=== PATIENT | female | born 1975 | race Caucasian/White ===

== ENCOUNTER 2016-08-10 18:10 | Inpatient (IN) | payer OTHER ==
[~2016-08-10] VITALS: Ht 162.6 cm; Wt 80.3 kg
[2016-08-25] MEDS ORDERED: LORAZEPAM 2 MG/1 ML VIAL IM PRN (21:15)
[2016-08-25] MEDS ORDERED: DICYCLOMINE HCL 20 MG TABLET PO PRN (21:15)
[2016-08-25] MEDS ORDERED: MAGNESIUM HYDROXIDE 30 ML LIQUID UDC PO PRN (21:15)
[2016-08-25] MEDS ORDERED: MAG HYDROX/AL HYDROX/SIMETH 30 ML LIQUID UDC PO PRN (21:15)
[2016-08-25] MEDS ORDERED: ONDANSETRON 4 MG/2 ML VIAL IM PRN (21:15)
[2016-08-25] MEDS ORDERED: THIAMINE HCL 200 MG/2 ML VIAL IM ONE (21:15)
[2016-08-25] MEDS ORDERED: LORAZEPAM 1 MG TABLET PO PRN (21:15)
[2016-08-25] MEDS ORDERED: ACETAMINOPHEN 325 MG TABLET PO PRN (21:15)
[2016-08-25] MEDS ORDERED: LOPERAMIDE HCL 2 MG CAPSULE PO PRN ×2 (21:15)
[2016-08-25] MEDS ORDERED: MIRALAX 17 GM POWD.PACK PO PRN (21:15)
[2016-08-25] MEDS ORDERED: IBUPROFEN 400 MG TABLET PO PRN (21:15)
[2016-08-25] MEDS ORDERED: CLONIDINE HCL 0.1 MG TABLET PO PRN (21:15)
[2016-08-25 21:27] LABS: *URINE HCG, QUAL NEGATIVE (NEGATIVE)
--- NOTE | 2016-08-25 21:30 | NUR ---
Pre-admission assessment Patient is a 41-year old, female, seen at intake, AAOx4, no SOB nor anxiety noted at this time. Patient appears intoxicated but is coherent and able to respond to questions appropriately. Pt is ambulatory with steady gait. Pt reported consuming Alcohol-mostly red wine about 3 bottles daily for the past 2 years. Vital signs taken and as follows: QR=531/93, P=112, O2 sat on RA=98%, RR=20, T=98.2. Pt verbalized instructions and teachings regarding disposal of narcotic and other controlled home meds, unit protocols such as taking of vital signs Q4H and handling and disposal of contraband.
[2016-08-25 21:31] LABS: *AMPHETAMINE, URINE NEGATIVE (NEGATIVE); *BARBITURATE, URINE NEGATIVE (NEGATIVE); *CANNABINOID, URINE NEGATIVE (NEGATIVE); *COCCAINE, URINE NEGATIVE (NEGATIVE); *OPIATE, URINE NEGATIVE (NEGATIVE); *PHENCYCLIDINE SCREEN,URINE NEGATIVE (NEGATIVE)
[2016-08-25 21:55] VITALS: BP 133/91
--- NOTE | 2016-08-25 22:00 | NUR ---
ADMISSION Patient is a 41-year old, female, admitted and escorted by [facility] at 2145 to unit. Patient verbalized that she lives alone in an apartment in [place], [place]. Skin check done, no open skin noted. Patient denies Suicidal Ideation nor Homicidal Ideation. No edema noted. Pt is ambulatory with steady gait. Pt stands 5'4" and weighs 177 pounds per standing scale. Vital signs are as follows: BP-129/92, T-98.2, P-111, RR-20 and SPO2 on RA=97%. Patient is AAOx4 and with mild anxiety noted at this time. Lung sounds clear bilaterally upon auscultation. No cough noted and bowel sounds are present on all quadrants. PERRLA and pupils are 2 mm upon visual check. Pt reports being allergic to Clonidine, on Regular Diet and is Full Code. Pt denies any seizure history. Per pt, withdrawal symptoms are sweating, nausea, vomiting, heartburn, anxiety, depression, insomnia, restless legs, generalized itchiness, flushed skin Substance history as follows: 1) Alcohol-per pt, she started drinking at age 22 and for the last 2 years has been drinking 3 bottles of mostly red wine daily. Last drink was 08/25/2016 at 1930, 2 bottles of red wine. Patient verbalized the she does not take other substances. UDS is negative for substances. Blood Ethyl Alcohol=0.16. Longest sobriety per pt is 30 days back in 2006. Patient informed PMHx of Anxiety, Depression, Hypertension, Hyperlipidemia, Asthma (only during childhood), Anemia, HPV and GERD. Per pt, PCP is Dr. Leija and with no Psychiatrist. Home medication Metoprolol 50 mg PO BID reconciled. Per pt, this is her first time in detox. Patient reports smoking cigarettes, Robinson Lights, about 1 pack daily. Oriented patient to room and instructed with the use of the call light, placed within reach. Fall, universal, seizure and safety precautions implemented. No c/o significant pain at this time All needs met. Information relayed to Dr. Patel. Patient refused Pneumonia vaccine despite explanation of risks and benefits and Flu vaccine is out of season. CIWA=6. Will continue to monitor.
[2016-08-25] MEDS ORDERED: METO50TA3 PO (22:54)
[2016-08-25] MEDS ORDERED: METOPROLOL TARTRATE 50 MG TABLET PO SCH (23:00)
[2016-08-25] MEDS ORDERED: METOPROLOL TARTRATE 50 MG TABLET PO ONE (23:00)
[2016-08-25] MEDS: LORAZEPAM 1 MG TABLET PO PRN (23:06)
--- NOTE | 2016-08-25 23:09 | NUR ---
RN note PRN Ativan and one-time Metoprolol Pt c/o anxiety and noted be flushed and restless. CIWA=7. Administered Ativan 1 mg PO as ordered. Also, pt verbalized that she did not take her 1700 [address]op[address] home meds. Informed Dr. Patel and ordered Metoprolol 50 mg PO one-time order. Administered. Will reassess.
[2016-08-25] MEDS ORDERED: LORAZEPAM 1 MG TABLET ONE (23:13)
[2016-08-25 23:32] LABS: BASOPHILS # (AUTO) 0.1 K/uL (0.0-8.0); BASOPHILS % (AUTO) 0.6 % (0.0-2.0); EOSINOPHILS # (AUTO) 0.3 K/uL (0.0-0.7); EOSINOPHILS % (AUTO) 2.9 % (0.0-7.0); HEMOGLOBIN 14.3 G/DL (12.0-16.0); LYMPHOCYTES # (AUTO) 2.5 K/UL (0.8-4.8); LYMPHOCYTES % (AUTO) 25.2 % (20.5-51.5); MEAN CORPUSCULAR HEMOGLOBIN 33.8 UUG (27.0-31.0); MEAN CORPUSCULAR HGB CONC 35 g/dL (32.0-37.0); MEAN CORPUSCULAR VOLUME 97.3 FL (81.0-99.0); MONOCYTES # (AUTO) 0.5 K/UL (0.1-1.30); MONOCYTES % (AUTO) 5.1 % (0.0-11.0); NEUTROPHILS # (AUTO) 6.6 K/UL (1.8-8.9); NEUTROPHILS % (AUTO) 66.2 % (38.5-71.5); PLATELET COUNT (AUTO) 328 K/UL (150-450); RED BLOOD CELL COUNT(AUTO) 4.21 MIL/UL (4.2-5.4)
[2016-08-25 23:45] LABS: BILIRUBIN,TOTAL 0.1 mg/dL (0.2-1.0); CREATININE 0.8 mg/dL (0.6-1.3); POTASSIUM 3.3 mmol/L (3.5-5.1); TOTAL PROTEIN, SERUM 7.8 g/dL (6.4-8.2)
[2016-08-26] VITALS: BP 105/74
[2016-08-26] MEDS ORDERED: POTASSIUM CHLORIDE 20 MEQ TAB.PRT.SR PO ONE
--- NOTE | 2016-08-26 00:05 | NUR ---
RN note reassess Pt's TA=551/70, Pulse=94. No SOB nor facial grimacing noted. CIWA=4.
[2016-08-26] MEDS ORDERED: POTASSIUM CHLORIDE 20 MEQ TAB.PRT.SR ONE (00:07)
[2016-08-26 00:29] LABS: THYROID STIMULATING HORMONE 1.884 mIU/mL (0.358-3.740)
[2016-08-26] MEDS ORDERED: METO50TA7 PO (01:24)
[2016-08-26 04:00] VITALS: BP 127/88
[2016-08-26] MEDS: LORAZEPAM 1 MG TABLET PO PRN (04:08)
--- NOTE | 2016-08-26 04:09 | NUR ---
RN note PRN Ativan Pt c/o feeling anxious, with fine tremors, flushed skin and sweating noted. CIWA=9. QA=215/88, P=92. Administered Ativan 1 mg PO as ordered. Will reassess.
[2016-08-26] MEDS ORDERED: LORAZEPAM 1 MG TABLET ONE (04:13)
--- NOTE | 2016-08-26 05:15 | NUR ---
RN note Pt asleep on bed, no SOB nor facial grimacing noted. Ativan effective.
--- NOTE | 2016-08-26 07:09 | NUR ---
End of Shift Patient is a 41-year old, female, admitted for ETOH Dependence. Patient reports consuming 3 bottles of mostly red wine daily for the past 2 years. Pt with allergy to Clonidine, is Full Code and on Regular Diet. With PMHx of Anxiety, Depression, Hypertesion, Hyperlipidemia, Asthma, Anemia, HPV (treated), and GERD. Pt is AAOx4, with mild anxiety noted at this time. No SOB noted, not in respi distress. Pt is ambulatory with steady gait and with no skin issues. Fall, universal and safety prec in place. Call light within reach. All needs met. Latest CIWA=9, slept for 5 hours. Endorsed to AM shift nurse for continuity of care.
--- NOTE | 2016-08-26 07:51 | NUR ---
BEGINNING OF SHIFT Patient endorsement report received from composition stone applicator nurse, all pertinent information discussed. patient is a 41 year old Female admitted on 08/25/2016 with admitting Dx: etoh dependence. Patient currently ongoing taper of 5 day Ativan and is scheduled to begin day 1 of taper. per nights shift patient received PRN: Ativan medication effective as per composition stone applicator Patient with last ciwa score of: 9. Patient slept for 5. hours. Patient received awake, alert and oriented x4, educated regarding plan of care for the day and medication regimen. safety measures in place. call light kept with in reach, will continue to monitor.
[2016-08-26 08:27] VITALS: BP 138/96
[2016-08-26] MEDS: MULTIVITAMINS,THERAPEUTIC TABLET PO SCH (08:27)
[2016-08-26] MEDS: FOLIC ACID 1 MG TABLET PO SCH (08:28)
[2016-08-26] MEDS: LORAZEPAM 1 MG TABLET PO SCH ×4 (08:28→20:51)
[2016-08-26] MEDS: THIAMINE HCL 100 MG TABLET PO SCH (08:28)
[2016-08-26] MEDS ORDERED: TUBERCULIN,PURIF.PROT.DERIV. 5 TU/0.1 ML TEST ID ONE (09:00)
[2016-08-26] MEDS ORDERED: METOPROLOL SUCCINATE XL 50 MG TAB.SR.24H PO SCH ×2 (09:00→09:45)
[2016-08-26 13:16] VITALS: BP 117/80
[2016-08-26 17:00] VITALS: BP 136/88
--- NOTE | 2016-08-26 18:58 | NUR ---
END OF SHIFT Patient alert and oriented x4, vital signs stable during shift. Patient with admitting Dx: ETOH dependence. Patient continues on 5 day Ativan taper, and is currently on day 1 of taper, well tolerated, no ASE noted. 0900 assessment patient presented with: mild nausea, tremors that can be felt but not seen, sweats, moderate anxiety and very mild head fullness with ciwa score of: 10. 1300 assessment patient presented with: tremors that can be felt but not seen, anxiety, barely sweating with ciwa score of: 4. 1700 assessment patient presented with: tremors that can be felt but not seen, anxiety, barely sweating with ciwa score of: 4. Patient was administered no PRNs medications during shift. Patient encouraged adequate PO fluid intake as tolerated. Encouraged to attend group therapies/sessions to learn new coping skills to prevent relapse denies any SI/HI. Safety measures in place. call light kept with in reach. all needs met and rendered. patient endorsed to awake overnight counselor nurse, all pertinent information discussed.
[2016-08-26 20:00] VITALS: BP 129/91
--- NOTE | 2016-08-26 20:00 | NUR ---
Start of Shift Patient is a 41-year old, female, admitted for ETOH Dependence. Patient reports consuming 3 bottles of mostly red wine daily for the past 2 years. Pt with allergy to Clonidine, is Full Code and on Regular Diet. With PMHx of Anxiety, Depression, Hypertesion, Hyperlipidemia, Asthma, Anemia, HPV (treated), and GERD. Pt is AAOx4, with mild anxiety noted at this time. No SOB noted, not in respi distress. Pt is ambulatory with steady gait and with no skin issues. Fall, universal and safety prec in place. Call light within reach. All needs met. Latest CIWA=5. Will continue to monitor.
[2016-08-26] MEDS: METOPROLOL TARTRATE 50 MG TABLET PO SCH (20:51)
[2016-08-26] MEDS ORDERED: LORAZEPAM 1 MG TABLET PO PRN ×2 (21:00)
[2016-08-27] VITALS: BP 125/90
[2016-08-27 04:00] VITALS: BP 119/83
--- NOTE | 2016-08-27 07:02 | NUR ---
End of Shift Patient is a 41-year old, female, admitted for ETOH Dependence. Patient reports consuming 3 bottles of mostly red wine daily for the past 2 years. Pt with allergy to Clonidine, is Full Code and on Regular Diet. With PMHx of Anxiety, Depression, Hypertesion, Hyperlipidemia, Asthma, Anemia, HPV (treated), and GERD. Pt is AAOx4, with mild anxiety noted at this time. No SOB noted, not in respi distress. Pt is ambulatory with steady gait and with no skin issues. Fall, universal and safety prec in place. Call light within reach. All needs met. Latest CIWA=5, slept for 8 hours. Endorsed to AM shift nurse for continuity of care.
[2016-08-27 08:00] VITALS: BP 130/90
[2016-08-27 08:06] LABS: HEPATITIS B SURFACE AG Negative (Negative)
[2016-08-27 08:24] LABS: BASOPHILS % (AUTO) 0.5 % (0.0-2.0); EOSINOPHILS # (AUTO) 0.3 K/uL (0.0-0.7); EOSINOPHILS % (AUTO) 3.2 % (0.0-7.0); HEMATOCRIT 41.5 % (37-47); HEMOGLOBIN 13.8 G/DL (12.0-16.0); LYMPHOCYTES # (AUTO) 1.3 K/UL (0.8-4.8); LYMPHOCYTES % (AUTO) 15.4 % (20.5-51.5); MEAN CORPUSCULAR HGB CONC 33 g/dL (32.0-37.0); MEAN CORPUSCULAR VOLUME 99.3 FL (81.0-99.0); MONOCYTES # (AUTO) 0.5 K/UL (0.1-1.30); MONOCYTES % (AUTO) 6.2 % (0.0-11.0); NEUTROPHILS # (AUTO) 6.1 K/UL (1.8-8.9); NEUTROPHILS % (AUTO) 74.7 % (38.5-71.5); PLATELET COUNT (AUTO) 311 K/UL (150-450); RED BLOOD CELL COUNT(AUTO) 4.18 MIL/UL (4.2-5.4); WHITE BLOOD COUNT (AUTO) 8.2 K/UL (4.0-11.2)
[2016-08-27 08:50] LABS: BILIRUBIN,DIRECT 0.1 mg/dL (0.0-0.2); BILIRUBIN,TOTAL 0.4 mg/dL (0.2-1.0); CREATININE 0.8 mg/dL (0.6-1.3); PHOSPHOROUS 2.8 mg/dL (2.5-4.9); POTASSIUM 3.7 mmol/L (3.5-5.1); TOTAL PROTEIN, SERUM 7.2 g/dL (6.4-8.2)
[2016-08-27] MEDS: MULTIVITAMINS,THERAPEUTIC TABLET PO SCH (09:06)
[2016-08-27] MEDS: FOLIC ACID 1 MG TABLET PO SCH (09:06)
[2016-08-27] MEDS: LORAZEPAM 1 MG TABLET PO SCH ×3 (09:06→20:14)
[2016-08-27] MEDS: THIAMINE HCL 100 MG TABLET PO SCH (09:07)
[2016-08-27] MEDS: METOPROLOL TARTRATE 50 MG TABLET PO SCH ×2 (09:07→20:14)
--- NOTE | 2016-08-27 10:00 | NUR ---
START OF SHIFT Received report from cnc machinist 2nd shift nurse. Received patient laying in bed. Patient is 41 year old female admitted for medically supervised withdrawal from alcohol. Patient is full code with allergy on clonidine. On fall precautions. On assessment this AM: CIWA: 2. Patient reports mild anxiety and tremors. Patient ate 75% of her breakfast, encouraged to hydrate with fluids. Patient on 5-day Ativan taper. Med compliant. Ativan given as ordered. Patient reports having small BM this AM, encouraged to drink plenty of water before giving her any PRN as she also reported she had diarrhea yesterday. Patient was encouraged to attend group meetings today. Will continue to monitor patient.
[2016-08-27 12:00] VITALS: BP 119/77
--- NOTE | 2016-08-27 14:25 | NUR ---
PRN IBUPROFEN Patient complained of headache pain level 5/10. PRN ibuprofen given. Will continue to monitor patient.
--- NOTE | 2016-08-27 15:25 | NUR ---
REASSESSMENT (PRN IBUPROFEN) Patient noted asleep. No complaints reported by patient at this time.
[2016-08-27 16:00] VITALS: BP 128/79
--- NOTE | 2016-08-27 19:00 | NUR ---
END OF SHIFT Patient is 41 year old female admitted for medically supervised withdrawal from alcohol. Patient is full code with allergy on clonidine. On fall precautions. Complained of headache, 5/10, PRN ibuprofen given, effective. Most recent CIWA: 2. Patient on 5day Ativan taper, compliant with treatment plan. Patient reports mild anxiety and restless legs. Patient's behavior is appropriate. Patient is tolerating her current diet without n/v. All needs met. overnight housepersonnight filler will continue to monitor patient.
[2016-08-27 20:00] VITALS: BP 146/112
--- NOTE | 2016-08-27 20:00 | NUR ---
BP/ HR - MD NOTIFIED DR. TRUONG MADE AWARE OF PATIENT'S BP-146/112, HR 122. ROUTINE ATIVAN, NEURONTIN AND LOPRESSOR 50 MG WAS GIVE. WILL RECHECK BP/HR.
--- NOTE | 2016-08-27 20:00 | NUR ---
START OF SHIFT NOTE PATIENT IN ROOM, NOTED EMOTIONAL, REPORTS ANXIETY, NO N/V, SWEATING , FLUSHED , NO N/V. DENIES ANY PAIN. RELAXATION TECHNIQUE PROVIDED. RECEIVED REPORT FROM DAY SHIFT NURSE. PATIENT IS A 35 YEAR OLD FEMALE, ADMITTED FOR ETOH DEPENDENCE. PATIENT IS ON 2ND DAY OF HER 5 DAY ATIVAN TAPER. PATIENT IS FULL CODE, REGULAR DIET AND ALLERGIC TO CLONIDINE. PATIENT DRINKS 3 BOTTLES OF MOSTLY RED WINE DAILY FOR 2 YEARS. PATIENT REPORTS PMH OF ANXIETY, DEPRESSION, HYPERTENSION, HYPERLIPIDEMIA , ASTHMA, ANEMIA , HPV (TREATED ) AND GERD. PATIENT IS ON FALL/SEIZURE PRECAUTION. SKIN INTACT. PATIENT WAS GIVEN IBUPROFEN. LAST CIWA 2. SAFETY MEASURES IN PLACE. CALL LIGHT IN REACH. WILL CONTINUE TO MONITOR.
[2016-08-27] MEDS: GABAPENTIN 300 MG CAPSULE PO SCH (20:14)
[2016-08-27] MEDS ORDERED: LORAZEPAM 1 MG TABLET PO ONE (21:30)
[2016-08-27] MEDS ORDERED: HYDROXYZINE PAMOATE 25 MG CAPSULE PO PRN (21:30)
--- NOTE | 2016-08-27 21:33 | NUR ---
ONE TIME ATIVAN ADMINISTRATION OBTAIN NEW ORDER FROM Surya TRUONG TO GIVE PATIENT ONE TIME ATIVAN. CIWA 5. BLOOD PRESSURE 129/97 , PULSE 103. PATIENT ANXIOUS. WILL MONITOR FOR EFFECTIVENESS
--- NOTE | 2016-08-27 22:33 | NUR ---
PRN ATIVAN RE-ASSESSMENT PATIENT IN BED ASLEEP.RESPIRATION EVEN AND UNLABORED. NO S/S OF DISTRESS. SAFETY MEASURES IN PLACE. CALL LIGHT IN REACH. WILL CONTINUE TO MONITOR.
[2016-08-28] VITALS: BP 113/76
[2016-08-28 04:00] VITALS: BP 116/75
--- NOTE | 2016-08-28 07:37 | NUR ---
END OF SHIFT NOTE MONITORED PATIENT THROUGHOUT SHIFT. PATIENT NOTED EMOTIONAL, REPORTED ANXIETY, NO N/V, SWEATING , FLUSHED , NO N/V. DENIES ANY PAIN DURING SHIFT. RELAXATION TECHNIQUE PROVIDED. PATIENT IS A 35 YEAR OLD FEMALE, ADMITTED FOR ETOH DEPENDENCE. PATIENT IS ON 2ND DAY OF HER 5 DAY ATIVAN TAPER, TOLERATED WELL, NO ADVERSE REACTION. PATIENT IS FULL CODE, REGULAR DIET AND ALLERGIC TO CLONIDINE. PATIENT DRINKS 3 BOTTLES OF MOSTLY RED WINE DAILY FOR 2 YEARS. PATIENT REPORTS PMH OF ANXIETY, DEPRESSION, HYPERTENSION, HYPERLIPIDEMIA , ASTHMA, ANEMIA , HPV (TREATED ) AND GERD. AT 1999 , PATIENT 'S BP WAS 146/[address] TRUONG WAS AWARE. RECHECK BP AND HR , IT WENT DOWN TO 129/97 HR-103. DR. TRUONG MADE NEW ORDER TO GIVE ONE TIME ATIVAN . PATIENT COMPLIANT WITH MEDICATION AND TREATMENT PLAN. PATIENT REMAIN FREE OF INJURY. PATIENT REMAIN FREE OF SEIZURE DURING SHIFT. PATIENT IS ON FALL/SEIZURE PRECAUTION. SAFETY MEASURES IN PLACE. CALL LIGHT IN REACH. WILL CONTINUE TO MONITOR. SLEPT 8 HOURS. FLUID INTAKE 1,000 ML. VOIDED X 2 . NO BM. LAST CIWA 1 .
--- NOTE | 2016-08-28 07:55 | NUR ---
START OF SHIFT Rcvd endorsement from shift superintendent caustic cresylate nurse, client is in bed, A/O to name, place, and time, she presents with anxious mood, flat affect, stating "I don't feel good, my legs are bothering me, it feels like I have to keep moving them all the time." She denies any N/V/D. She denies any SI/HI. Encouraged increased fluids to assist in facilitating detox. Encouraged group attendance to help maintain sobriety. Client admitted for medically supervised withdrawal from alcohol, she is on day 2nd of 5 Ativan taper. Patient is full code, allergies to Clonidine. Seizure precautions. She reports PMH Anxiety, Depression, Essential hypertension, Dyslipidemia, Reflux esophagitis, Chronic tobacco use. Last CIWA 1. Side rails x 2 up/padded. Call light within reach. Will continue plan of care
[2016-08-28] MEDS: GABAPENTIN 300 MG CAPSULE PO SCH ×2 (08:26→15:30)
[2016-08-28] MEDS: MULTIVITAMINS,THERAPEUTIC TABLET PO SCH (08:26)
[2016-08-28] MEDS: THIAMINE HCL 100 MG TABLET PO SCH (08:26)
[2016-08-28] MEDS: FOLIC ACID 1 MG TABLET PO SCH (08:26)
[2016-08-28] MEDS: LORAZEPAM 1 MG TABLET PO SCH ×4 (08:27→20:34)
[2016-08-28] MEDS: METOPROLOL TARTRATE 50 MG TABLET PO SCH ×2 (08:27→20:34)
[2016-08-28 08:30] VITALS: BP 124/89
--- NOTE | 2016-08-28 09:00 | NUR ---
Zero induration on L F/A TB site.
[2016-08-28 12:00] VITALS: BP 115/73
--- NOTE | 2016-08-28 12:00 | NUR ---
MD NOTIFICATION Client with episodes of tachycardia, flashed face, she denies any chest pain.
--- NOTE | 2016-08-28 14:10 | NUR ---
ECG RESULTS Sinus Tachycardia, Dr. Patel made aware. NNO at this time, client is in room, watching TV, will continue ot monitor.
[2016-08-28 16:55] VITALS: BP 139/93
--- NOTE | 2016-08-28 18:33 | NUR ---
END OF SHIFT Client is in room, she was not compliant with group therapy. Ativan taper continues and is effective managing his s/sx of withdrawal (sweats, restless legs, anxiety and irritability) She is a 41 y/o female admitted to [facility] on 08/25/16 for medically-supervised withdrawal from alcohol. Allergies to Clonidine, Regular diet, full code. Last CIWA 9. Sinus Tachycardia, Dr. Patel made aware. NNO, 1600 VITALS P 123, an hour after Ativan 1mg taper, P 98. Adequate intake 4026mL and output void x 4, stool x 2. Seizure precautions. Side rails x 2 up/padded. Call light within reach. Endorsed to incoming nurse.
--- NOTE | 2016-08-28 18:33 | NUR ---
START OF SHIFT NOTE Patient endorsed by day shift nurse. SBAR Report received. Patient is a 41 year old female admitted to [facility] on 08/25/16 for Alcohol dependence, placed on 5 Day Ativan Taper since 08/26/16. Patient tolerated well. Patient remains compliant with treatment plan, medications, and diet regime. Patient reports Allergies to Clonidine. Patient on Regular Diet, placed on Full Code, Seizures and Fall Precautions. Patient denies Seizures History. Patient reports PMH: Alcohol Dependence, Anemia, Anxiety, Asthma, Depression, HTN, Hyperlipidemia, HPV, GERD. Patient denies Past Surgery History. Patient reports a history of alcohol use disorder " During last 2years, since 2014". Patient reports, "this is his first time in detox/treatment". The patient denies a History of Seizures. At the time of endorsement, patient is alert and oriented x4, Speech is clear and soft. CIWA 7: The patient reported the following symptoms of withdrawal: anxiety, agitation, nervousness, body aches, diaphoresis, abdominal cramps, headache, restless legs, tremors, and fatigue. Patient denies SI/HI. Breathing is even and unlabored. Patient denies SOB and chest pain. Patient has tachycardia. ECG done on 08/28/16. Results placed in the chart. Doctor Gilbert Patel MD aware. Abdomen is soft, non-distended. Bowel Sounds is active in all x 4 quadrants. Last BM was "08/28/16". Skin is intact, warm and moist by tough. Patient encouraged to fluids intake, as tolerated. Patient attended group activities to improve copping skills. All needs met. Safety measures in place by hospital policy: Call light within reach, bed in the lowest position and lock, padded rails up x2. Will continue to monitor closely.
[2016-08-28 20:00] VITALS: BP 133/89
[2016-08-28] MEDS: ONDANSETRON ODT 4 MG TAB.RAPDIS SL PRN (20:40)
--- NOTE | 2016-08-28 20:40 | NUR ---
PRN ZOFRAN ODT (ONDANSETRON ODT) RAPIDUS SL ADMINISTRATION Patient c/o nausea. Patient was assessed. Patient denies vomiting and diarrhea. Ordered PRN Zofran Odt.(Ondansetron Odt) SL discussed with patient. Patient was educated for actions, side effects, and adverse reactions of Zofran Odt. (Ondansetron Odt) SL. Patient return his knowledge back by verbalized understanding. PRN Zofran Odt. (Ondansetron Odt) 4 mg 1 tablet Rapidus, SL administrated as ordered. Patient tolerated well. Will re-assess in one hour. All needs met. Safety measures in place by hospital policy: Call light within reach, bed in the lowest position and lock, padded rails up x2. Will continue to monitor closely.
[2016-08-28] MEDS ORDERED: GABAPENTIN 300 MG CAPSULE PO SCH (21:00)
--- NOTE | 2016-08-28 21:40 | NUR ---
RE - ASSESSMENT Patient denies N/V, and said that "Zofran was effective". All needs met. Safety measures in place by hospital policy: Call light within reach, bed in the lowest position and lock, padded rails up x2. Will continue to monitor closely.
[2016-08-29] VITALS: BP 126/79
[2016-08-29 04:00] VITALS: BP 109/66
--- NOTE | 2016-08-29 07:11 | NUR ---
END OF SHIFT NOTE Patient endorsed to day shift nurse in stable condition. Report given. Patient is a 41 year old female admitted to [facility] on 08/25/16 for Alcohol dependence, placed on 5 Day Ativan Taper since 08/26/16. Patient tolerated well. Patient remains compliant with treatment plan, medications, and diet regime. Patient reports Allergies to Clonidine. Patient on Regular Diet, placed on Full Code,Seizures and Fall Precautions. Patient denies Seizures History. Patient reports PMH: Alcohol Dependence, Anemia, Anxiety, Asthma, Depression, HTN, Hyperlipidemia, HPV, GERD. Patient denies Past Surgery History. Patient reports a history of alcohol use disorder "since 2014". Patient reports, "this is his first time in detox/treatment". The patient denies a History of Seizures. CIWA at 04:00 decreased from 7 to 4: The patient presented with the following symptoms of withdrawal: anxiety, agitation, nervousness, body aches, diaphoresis, abdominal cramps, nausea, headache, restless legs, tremors, and fatigue. Patient denies vomiting an diarrhea. PRN Zofran SL for nausea was effective. Patient denies SI/HI. Breathing is even and unlabored. Patient denies SOB and chest pain. Patient has sinus tachycardia r/t ECG results from 08/28/16. Results placed in the chart. Doctor Gilbert Patel MD aware. Last BM was "08/28/16". Skin is intact, warm and moist by tough. Patient encouraged to fluids intake, as tolerated. Patient attended group activities to improve copping skills.Patient slept 8 hours, intake 1200 ml, voided x3. Patient attended group activities. All needs met. Safety measures in place by hospital policy: Call light within reach, bed in the lowest position and lock, padded rails up x2.
--- NOTE | 2016-08-29 07:55 | NUR ---
START OF SHIFT Rcvd endorsement from weight shifter nurse, client is in bed, A/O to name, place, and time, she presents with depressed mood, flushed face, she reports restless legs, anxiety, she denies any N/V/D, "My head feels very tight at my forehead." She denies any SI/HI. Encouraged increased fluids to assist in facilitating detox. Encouraged group attendance to help maintain sobriety. Client admitted for medically supervised withdrawal from alcohol, she is on day 3rd of 5 Ativan taper. Patient is full code, allergies to Clonidine. Seizure precautions. Last CIWA 5. Side rails x 2 up/padded. Call light within reach. Will continue plan of care
[2016-08-29] MEDS: THIAMINE HCL 100 MG TABLET PO SCH (08:38)
[2016-08-29] MEDS: FOLIC ACID 1 MG TABLET PO SCH (08:38)
[2016-08-29] MEDS: LORAZEPAM 1 MG TABLET PO SCH ×3 (08:38→21:08)
[2016-08-29] MEDS: GABAPENTIN 300 MG CAPSULE PO SCH ×3 (08:38→21:08)
[2016-08-29] MEDS: MULTIVITAMINS,THERAPEUTIC TABLET PO SCH (08:38)
--- NOTE | 2016-08-29 08:38 | NUR ---
PRN Tylenol 650mg Client reports frontal VILLA, 07/13, she denies any nausea, vomiting. Encouraged to increase fluid intake as tolerated and administered Tylenol 650mg PO. Call light within reach.
[2016-08-29] MEDS: METOPROLOL TARTRATE 50 MG TABLET PO SCH (08:39)
[2016-08-29 08:44] VITALS: BP 142/95
--- NOTE | 2016-08-29 09:39 | NUR ---
reassessment PRN Tylenol 650mg Client reports relief from VILLA 0/10, Tylenol 650mg effective. Call light within reach.
[2016-08-29 12:10] VITALS: BP 127/88
[2016-08-29] MEDS: ONDANSETRON ODT 4 MG TAB.RAPDIS SL PRN (12:12)
--- NOTE | 2016-08-29 12:12 | NUR ---
PRN ZOFRAN, BENTYL Client reports intermittent nausea, no episodes of emesis, Zofran 4mg SL given and Bentyl 20mg PO for abdominal spasms. Risk/benefits discuss, she verbalized understanding. Call light within reach.
--- NOTE | 2016-08-29 13:12 | NUR ---
Reassessment PRN ZOFRAN, BENTYL Client reports relief from nausea, no more abd spasms Zofran 4mg SL and Bentyl 20mg effective. Call light within reach.
[2016-08-29] MEDS ORDERED: METOPROLOL TARTRATE 50 MG TABLET PO ONE (14:00)
[2016-08-29 16:55] VITALS: BP 119/82
--- NOTE | 2016-08-29 19:36 | NUR ---
END OF SHIFT Client is in room, she was not compliant with group therapy. Ativan taper continues and is effective managing his s/sx of withdrawal (sweats, restless legs, anxiety and irritability) She is a 41 y/o female admitted to [facility] on 08/25/16 for medically-supervised withdrawal from alcohol. Allergies to Clonidine, Regular diet, full code. Last CIWA 7. PRN Tylenol for VILLA, Bentyl for abd spasms, Zofran for nausea all noted effective. Sinus Tachycardia, Dr. Patel made aware, he increased Metoprolol to 100mg BID. Adequate intake 1750mL and output void x 1, stool x 1. Seizure precautions. Side rails x 2 up/padded. Call light within reach. Endorsed to incoming nurse.
--- NOTE | 2016-08-29 19:36 | NUR ---
START OF SHIFT NOTE Patient endorsed by day shift nurse in stable condition. Report received. Patient is a 41 year old female admitted to [facility] on 08/25/16 for Alcohol dependence, placed on 5 Day Ativan Taper since 08/26/16. Patient tolerated well. Patient remains compliant with treatment plan, medications, and diet regime. Allergies to Clonidine, Regular Diet, Full Code, Seizures and Fall Precautions. The patient denies a History of Seizures. At the time of endorsement, patient is in the room is alert and oriented x4. Speech is clear and soft. CIWA 7: The patient reported the following symptoms of withdrawal: anxiety, agitation, nervousness, diaphoresis, abdominal cramps, headache, restless legs, tremors, and fatigue. Patient denies SI/HI. VS WNL. Breathing is even and unlabored. Patient denies SOB and chest pain. Abdomen is soft, non-distended. Bowel Sounds is active in all x 4 quadrants. Last BM was "08/29/16 at 10:00". Skin is intact, warm and moist by tough. Patient encouraged to fluids intake, as tolerated. Patient attended group activities. All needs met. Safety measures in place by hospital policy: Call light within reach, bed in the lowest position and lock, padded rails up x2. Will continue to monitor closely.
[2016-08-29 20:00] VITALS: BP 145/88
[2016-08-29] MEDS ORDERED: METOPROLOL TARTRATE 50 MG TABLET PO SCH (21:00)
[2016-08-29] MEDS: METOPROLOL TARTRATE 100 MG TABLET PO SCH (21:09)
[2016-08-30] VITALS: BP 107/65
[2016-08-30 04:00] VITALS: BP 109/71
--- NOTE | 2016-08-30 07:16 | NUR ---
END OF SHIFT NOTE: Patient endorsed to day shift nurse in stable condition. Report given. Patient is a 41 year old female admitted to [facility] on 08/25/16 for Alcohol dependence, placed on 5 Day Ativan Taper since 08/26/16. Patient tolerated well. Patient remains compliant with treatment plan, medications, and diet regime. Allergies to Clonidine, Regular Diet, Full Code, Seizures and Fall Precautions. Patient denies a History of Seizures. During the retail shift supervisor CIWA decreased from 7 to 3. Patient presented with the following symptoms of withdrawal: Anxiety, agitation, nervousness, diaphoresis, abdominal cramps, headache, restless legs, tremors that can be felt, and fatigue. Patient denies SI/HI. VS WNL. Breathing is even and unlabored. Patient denies SOB and chest pain. Skin is intact, warm and moist by tough. Patient encouraged to fluids intake, as tolerated. Patient slept 8 hours 25 minutes, intake 1,150 ml, voided x1. All needs met. Safety measures in place by hospital policy: Call light within reach, bed in the lowest position and lock, padded rails up x2.
[2016-08-30 08:00] VITALS: BP 133/89
--- NOTE | 2016-08-30 08:04 | NUR ---
START OF SHIFT NOTE Received pt this Am AOx4. Patient reports she feels better and slept good last night.Patient on 5 day Ativan taper. No PRNs given during the night. Patient slept 8 hours. Last CIWA 3 per night nurse. Encouraged pt to increase fluid intake to facilitate detox. Encouraged pt to attend groups and activities.. Will provide safe and supportive environment.
[2016-08-30] MEDS: METOPROLOL TARTRATE 100 MG TABLET PO SCH ×2 (08:52→20:45)
[2016-08-30] MEDS: LORAZEPAM 1 MG TABLET PO SCH ×2 (08:52→20:43)
[2016-08-30] MEDS: GABAPENTIN 300 MG CAPSULE PO SCH ×3 (08:52→20:43)
[2016-08-30] MEDS: FOLIC ACID 1 MG TABLET PO SCH (08:52)
[2016-08-30] MEDS: MULTIVITAMINS,THERAPEUTIC TABLET PO SCH (08:52)
[2016-08-30] MEDS: THIAMINE HCL 100 MG TABLET PO SCH (08:52)
[2016-08-30 12:00] VITALS: BP 110/68
[2016-08-30 16:00] VITALS: BP 135/91
--- NOTE | 2016-08-30 18:36 | NUR ---
END OF SHIFT NOTE Patient continues on 5 day Ativan taper and tolerating well. No PRNS given during shift as detox meds are effective. Last CIWA 5. Patient reports feeling mildly agitated during shift. Patient isolated self in room most of shift and did not attend groups or activities or socialize self with peers. All needs have been met. All safety measures in place. Will pass shift report to oncoming nurse.
[2016-08-30 20:00] VITALS: BP 131/89
--- NOTE | 2016-08-30 20:00 | NUR ---
START OF SHIFT NOTE Report received from Mariama day shift nurse. She endorsed a patient a 41 year old female admitted to [facility] on 08/25/16 for Alcohol dependence, continues 5 Day Ativan Taper since 08/26/16. Patient tolerated well. Patient remains compliant with treatment plan, medications, and diet regime. Allergies to Clonidine, Regular Diet, Full Code, Seizures and Fall Precautions. The patient denies a History of Seizures. At the time of endorsement, patient is in the room is alert and oriented x4. Speech is clear and soft. CIWA 5: The patient reported the following symptoms of withdrawal: anxiety, agitation, nervousness, diaphoresis, abdominal cramps, headache, restless legs, tremors, and fatigue. Patient denies SI/HI. VS WNL. Breathing is even and unlabored. Patient denies SOB and chest pain. Abdomen is soft, non-distended. Bowel Sounds is active in all x 4 quadrants. Skin is intact, warm and moist to touch. Patient encouraged to fluids intake, as tolerated. Patient attended group activities. All needs met. Safety measures in place by hospital policy: Call light within reach, bed in the lowest position and lock, padded rails up x2. Will continue to monitor closely.
--- NOTE | 2016-08-30 20:52 | NUR ---
PRN MILK OF MAGNESIA ADMINISTRATION Patient c/o "constipation" and ask aid. Patient assessed. VS WNL. Patient denies pain: "0/10". Abdomen soft and non-distended. Last BM was "08/29/2016 at 10:00". PRN Milk of Magnesia PO discussed with patient. Patient educated for actions, side effects, and adverse reactions of Milk of Magnesia. Patient return knowledge back by verbalized understanding. PRN Milk of Magnesia PO administrated as ordered with full glasses of water. Patient tolerated well. Encouraged fluid intake, as tolerated. Will re-assess in one hour. All needs met. Safety measures in place by hospital policy: Call light within reach, bed in the lowest position and lock, padded rails up x2. Will continue to monitor closely.
[2016-08-30] MEDS: diphenhydrAMINE 50 MG CAPSULE PO PRN (20:53)
--- NOTE | 2016-08-30 20:53 | NUR ---
PRN BENADRYL 50 MG PO ADMINISTRATION Patient c/o insomnia. Patient assessed. VS WNL. Patient denies pain: "0/10". Ordered PRN Benadryl PO discussed with patient. Patient was educated for actions, side effects, and adverse reactions of Benadryl. Patient return knowledge back by verbalized understanding. PRN Benadryl 50 mg 1 tablet PO administrated as ordered with full glasses of water. Patient tolerated well. Will re-assess in one hour. All needs met. Safety measures in place by hospital policy: Call light within reach, bed in the lowest position and lock, padded rails up x2. Will continue to monitor closely.
--- NOTE | 2016-08-30 21:25 | NUR ---
RE - ASSESSMENT Patient denies abdominal cramps:"Milk of Magnesia helped me. I am feeling much better now". All needs met. Safety measures in place by hospital policy: Call light within reach, bed in the lowest position and lock, padded rails up x2. Will continue to monitor closely.
--- NOTE | 2016-08-30 21:53 | NUR ---
RE - ASSESSMENT Patient is lying in the bed with closed eyes. Breathing is even and unlabored. PRN Benadryl PO was effective. All needs met. Safety measures in place by hospital policy: Call light within reach, bed in the lowest position and lock, padded rails up x2. Will continue to monitor closely.
[2016-08-31] VITALS: BP 97/59
[2016-08-31 04:00] VITALS: BP 105/68
--- NOTE | 2016-08-31 06:59 | NUR ---
END OF SHIFT NOTE: Patient endorsed to day shift nurse in stable condition. Report given. Patient is a 41 year old female admitted to [facility] on 08/25/16 for Alcohol dependence, continues 5 Day Ativan Taper since 08/26/16. Patient tolerated well. Patient reports allergies to Clonidine and Regular Diet. Patient placed on Full Code, Seizures and Fall Precautions. Patient denies a History of Seizures. Upon last assessment at 04:00, CIWA decreased from 8 to 3. Patient presented with the following symptoms of withdrawal: Anxiety, agitation, nervousness, diaphoresis, abdominal cramps, headache, restless legs, tremors that can be felt, and fatigue. Patient denies SI/HI. VS at 04:00: T:98'3, BP: 105/68; HR: 89; RA O2 Sat: 95%; RR: 16, Pain level: "0/10". Breathing is even and unlabored. Patient denies SOB and chest pain. Skin is intact, warm and moist by tough. Patient encouraged to fluids intake, as tolerated. PRN Milk of Magnesia PO and PRN Benadryl PO were effective. Patient slept 7 hours, intake 1,500 ml, voided x2, stool x1. All needs met. Safety measures in place by hospital policy: Call light within reach, bed in the lowest position and lock, padded rails up x2.
[2016-08-31 08:00] VITALS: BP 134/75
--- NOTE | 2016-08-31 08:23 | NUR ---
START OF SHIFT NOTE Received pt this Am AOx4. Patient presents with brighter mood and affect. She reports she feels "good" Patient on 5 day Ativan taper. PRN Milk of Magnesia and Benadryl given per night nurse with effectiveness. Patient slept 7 hours. Last CIWA 3 per night nurse. Encouraged pt to increase fluid intake to facilitate detox. Encouraged pt to attend groups and activities and socialize herself with peers today. Will provide safe and supportive environment.
[2016-08-31] MEDS: THIAMINE HCL 100 MG TABLET PO SCH (08:29)
[2016-08-31] MEDS: MULTIVITAMINS,THERAPEUTIC TABLET PO SCH (08:30)
[2016-08-31] MEDS: METOPROLOL TARTRATE 100 MG TABLET PO SCH ×2 (08:30→21:01)
[2016-08-31] MEDS: GABAPENTIN 300 MG CAPSULE PO SCH ×3 (08:30→21:01)
[2016-08-31] MEDS: FOLIC ACID 1 MG TABLET PO SCH (08:30)
[2016-08-31 12:00] VITALS: BP 130/86
[2016-08-31 16:00] VITALS: BP 131/96
--- NOTE | 2016-08-31 16:27 | NUR ---
PRN MEDS PRN Maalox given for c/o heartburn. Will reassess
--- NOTE | 2016-08-31 17:05 | NUR ---
PRN REASSESSMENT Patient reports improvement in heartburn. Will continue to monitor
[2016-08-31 17:06] LABS: *AMPHETAMINE, URINE NEGATIVE (NEGATIVE); *BARBITURATE, URINE NEGATIVE (NEGATIVE); *CANNABINOID, URINE NEGATIVE (NEGATIVE); *COCCAINE, URINE NEGATIVE (NEGATIVE); *OPIATE, URINE NEGATIVE (NEGATIVE); *PHENCYCLIDINE SCREEN,URINE NEGATIVE (NEGATIVE)
[2016-08-31] MEDS ORDERED: Gabapentin PO (18:14)
[2016-08-31] MEDS ORDERED: DIPH50CA37 PO (18:14)
[2016-08-31] MEDS ORDERED: Metoprolol Tartrate PO (18:14)
[2016-08-31] MEDS ORDERED: HYDR-3895 PO (18:14)
--- NOTE | 2016-08-31 18:26 | NUR ---
END OF SHIFT NOTE Patient completed on 5 day Ativan taper and tolerating well. UDS collected and sent to lab.PRN Maalox given for heartburn with effectiveness. Last CIWA 1. Patient reports feeling mildly agitated during shift. Patient isolated self in room most of shift and did not attend groups or activities or socialize self with peers. All needs have been met. All safety measures in place. Will pass shift report to oncoming nurse.
--- NOTE | 2016-08-31 19:30 | NUR ---
START OF SHIFT Pt is a 41 y/o female admitted for ETOH dependence.Patient completed on 5 day Ativan taper and tolerated well. Last CIWA 1. A/O X 4. Skin is intact, warm and dry to touch. Patient encouraged fluids intake, as tolerated. Pt is compliant with treatment plan,scheduled for discharge in the morning. All needs met. Safety measures in place by hospital policy: Call light within reach, bed in the lowest position and lock, padded rails up x2. Will continue to monitor closely.
[2016-08-31 20:00] VITALS: BP 135/98
[2016-08-31] MEDS: diphenhydrAMINE 50 MG CAPSULE PO PRN (21:28)
--- NOTE | 2016-08-31 21:30 | NUR ---
PRN MED PRN BENADRYL GIVEN ORDERED FOR C/O INSOMNIA PER PT REQUEST.WILL MONITOR.
--- NOTE | 2016-08-31 22:30 | NUR ---
PRN F/U PT RESTING IN BED WITH EYES CLOSED.NO S/S OF DISTRESS NOTED.WILL BE MONITORED.
[2016-09-01] VITALS: BP 115/73
--- NOTE | 2016-09-01 | NUR ---
V/S REFUSED.CIWA DEFERRED. Pt requested not to be awakened for v/s if sleeping,Pt resting comfortably in bed;breathing is even and non labored;no s/s of distress noted;all safety measures in place;will continue to monitor.
--- NOTE | 2016-09-01 06:48 | NUR ---
END OF SHIFT Pt is a 41 y/o female admitted for ETOH dependence.Patient completed on 5 day Ativan taper and tolerated well. Last CIWA 1. A/O X 4. Skin is intact, warm and dry to touch. Patient encouraged fluids intake, as tolerated. Pt is compliant with treatment plan,scheduled for discharge today.PRN Benadryl was given last night with good effect.Pt slept 7 HRS,fluid intake was 2250 mls,voided x 4 . All needs met. Safety measures in place by hospital policy: Call light within reach, bed in the lowest position and lock, padded rails up x2. Will continue to monitor closely. Addendum: 09/01/16 at 0700 by FINESSE LEE RN LAST CIWA-1.
--- NOTE | 2016-09-01 07:00 | NUR ---
Start of Shift Notes: Received patient in her room. Alert and oriented x 4. Verbally responsive. Able to make his needs known. Respirations even and unlabored. No SOB noted. Skin warm and dry to touch. Abdomen soft and non-distended with (+) BS in all 4 quadrants. No complains of N/V/D or abdominal discomfort noted. Voids independently. Ambulatory ad roxana with steady gait. Patient is a 41 year old male admitted for ETOH dependence who was placed on a 5-day Ativan taper that has been completed. Has past medical hx of anxiety, depression, HTN, hyperlipidemia, asthma, anemia, HPV, GERD. Regular diet. FULL CODE. On fall and seizure precautions. Educated patient on the discharge process and the medication regimen. Patient verbalized understanding. Will continue to monitor and discharge patient accordingly.
[2016-09-01 08:00] VITALS: BP 115/73
--- NOTE | 2016-09-01 08:45 | NUR ---
Discharge Instructions: Patient was given education regarding her discharge instructions. Patient verbalized good understanding. All clothings, meds and valuables were returned to the patient. All necessary discharge paperwork was placed inside duffel bag which includes TB test, UDS, prescription and medical records. No s/s of withdrawal noted. VS stable. CIWA 0.
[2016-09-01 08:46] VITALS: BP 118/82
[2016-09-01] MEDS: GABAPENTIN 300 MG CAPSULE PO SCH (08:46)
[2016-09-01] MEDS: THIAMINE HCL 100 MG TABLET PO SCH (08:46)
[2016-09-01] MEDS: FOLIC ACID 1 MG TABLET PO SCH (08:46)
[2016-09-01] MEDS: METOPROLOL TARTRATE 100 MG TABLET PO SCH (08:46)
[2016-09-01] MEDS: MULTIVITAMINS,THERAPEUTIC TABLET PO SCH (08:47)
--- NOTE | 2016-09-01 09:13 | NUR ---
Discharged: Patient left the unit at this time. Escorted by male bilingual loan processor. Patient was picked up by [facility] to be transported to [facility]. Patient left in stable condition with all meds, belongings, clothings and valuables.
== END 2016-09-01 09:13 | DRG 895 ==
LOC: SRC 08-25 21:03
PROVIDERS: ADMIT Internal Medicine; ATTEND Internal Medicine
PROC: HZ2ZZZZ Detoxification Services for Substance Abuse Treatment (ICD-10-PCS; principal; 2016-08-25)
PROC: HZ31ZZZ Individual Counseling for Substance Abuse Treatment, Behavioral (ICD-10-PCS; 2016-08-27)
PROC: HZ41ZZZ Group Counseling for Substance Abuse Treatment, Behavioral (ICD-10-PCS; 2016-08-29)
DX: F10.239 Alcohol dependence with withdrawal, unspecified (principal); F10.230 Alcohol dependence with withdrawal, uncomplicated; K29.20 Alcoholic gastritis without bleeding; K70.10 Alcoholic hepatitis without ascites; F15.21 Other stimulant dependence, in remission; Y90.9 Presence of alcohol in blood, level not specified; Z83.3 Family history of diabetes mellitus; Z82.49 Family history of ischemic heart disease and other diseases of the circulatory system; F17.210 Nicotine dependence, cigarettes, uncomplicated; E87.6 Hypokalemia; E78.5 Hyperlipidemia, unspecified; I10 Essential (primary) hypertension; F32.9 Major depressive disorder, single episode, unspecified; R73.9 Hyperglycemia, unspecified; K21.0 Gastro-esophageal reflux disease with esophagitis
CPT/HCPCS: 36415; 70030-TC; 80307; 83690; 83735; 84100; 84443; 84703; 85025; 86580; 86592; 86705; 86803; 87340; 87806; 93005; A4663; G6040-TC; Q0162; Q0163